=== PATIENT | male | born 1955 | race Caucasian/White ===

== ENCOUNTER → 2023-10-13 14:43 | Outpatient (REF) | payer MEDICARE, OTHER, SELFPAY | LOC: RAD 14:43 | PROVIDERS: ATTENDING PHYSICIAN Family Medicine | DX: D70.9 Neutropenia, unspecified (principal); D69.6 Thrombocytopenia, unspecified; R80.9 Proteinuria, unspecified; R31.21 Asymptomatic microscopic hematuria | CPT/HCPCS: 74178; Q9967 ==

== ENCOUNTER 2023-12-08 06:11 | Day surgery (SDC) | payer MEDICARE, OTHER, SELFPAY ==
[2023-12-08] VITALS (9 sets, daily range): BP systolic 110–133; BP diastolic 55–71; BMI 22.6
[2023-12-08] MEDS: Pyridium 200 MG PO (06:54)
[2023-12-08] MEDS: NORMOSOL-R/PLASMALYTE-A 1000 IV (06:54)
== END 2023-12-08 10:05 | disposition home or self-care (01) ==
LOC: SDS 06:11
PROVIDERS: ATTENDING PHYSICIAN Specialist
DX: N20.1 Calculus of ureter (principal); I72.2 Aneurysm of renal artery
CPT/HCPCS: 52356; 74018; 76000; C1894; C2617